=== PATIENT | female | born 1985 | race Caucasian/White ===

== ENCOUNTER 2016-06-05 14:27 | Day surgery (SDC) | payer BC ==
[~2016-06-05 14:27] MED LIST: NORCO 5/3251 TAB PO; OXYCODONE/APAP PO; PRENATAL1 EACH PO; SPRINTEC1 TAB PO; TYLENOL325 MG PO; ZOFRAN4 MG/2 ML IV
== END 2016-06-05 17:20 ==
LOC: WSU 14:27 → SHSA 14:28 → ORW 15:56 → SHSA 16:30
PROC: 0U9MXZZ Drainage of Vulva, External Approach (ICD-10-PCS; principal; 2016-06-05)
DX: N75.0 Cyst of Bartholin's gland (principal); Z88.8 Allergy status to other drugs, medicaments and biological substances; Z86.19 Personal history of other infectious and parasitic diseases